=== PATIENT | male | born 1945 | race Two or more races ===

== ENCOUNTER 2021-11-29 08:47 | Emergency (ER) | payer MEDICARE, OTHER ==
[~2021-11-29] VITALS: Ht 170.2 cm; Wt 74.8 kg
[2021-11-29 09:31] VITALS: BP 126/63
[2021-11-29 10:13] LABS: Basophils # (auto) 0 10 ^3/uL (0-0.2); Basophils % (auto) 0.4 % (0.0-2.0); Eosinophils # (auto) 0 10 ^3/uL (0-0.8); Eosinophils % (auto) 0.2 % (0.0-7.0); Hematocrit 30.5 % (41.0-53.0); Hemoglobin 10.8 g/dL (13.5-17.5); Lymphocytes # (auto) 0.5 10 ^3/uL (0.4-5.4); Lymphocytes % (auto) 5.4 % (10.0-50.0); Mean Corpuscular Hemoglobin 35.1 pg (28.0-32.0); Mean Corpuscular Hgb Conc. 35.5 g/dL (32.0-36.0); Mean Corpuscular Volume 98.8 fL (80.0-100.0); Monocytes # (auto) 0.8 10 ^3/uL (0-1.3); Monocytes % (auto) 8.6 % (0.0-12.0); Neutrophils # (auto) 7.8 10 ^3/uL (1.6-8.6); Neutrophils % (auto) 85.4 % (37.0-80.0); Red Blood Cells 3.09 10^6/uL (4.5-5.90); Red Cell Distribution Width 12.8 % (11.8-14.3); White Blood Cell 9.2 10^3/uL (4.4-10.8)
[2021-11-29 10:24] LABS: Urine WBC None Seen /hpf (0 - 3)
[2021-11-29 10:45] LABS: Calcium 8.7 mg/dL (8.5-10.1); Potassium 4.3 mmol/L (3.5-5.1)
[2021-11-29 10:50] LABS: BUN/Creatinine Ratio 44.4; Bilirubin, Total 0.4 mg/dL (0.2-1.0); Total Protein 6.5 g/dL (6.4-8.2)
[2021-11-29 11:25] LABS: Urine Bacteria NONE SEEN /hpf (None Seen); Urine Blood 2+ /uL (Negative); Urine Hyaline Cast FEW /lpf (0 - 2); Urine Specific Gravity 1.023 (1.001-1.035)
== END 2021-11-29 12:41 | disposition home or self-care (01) ==
LOC: ER 08:47
DX: R33.9 Retention of urine, unspecified (principal); F03.90 Unspecified dementia, unspecified severity, without behavioral disturbance, psychotic disturbance, mood disturbance, and anxiety; J45.909 Unspecified asthma, uncomplicated
CPT/HCPCS: 36415; 51702; 80053; 81001; 85025

== ENCOUNTER 2021-12-01 03:50 | Emergency (ER) | payer MEDICARE ==
[~2021-12-01] VITALS: Ht 167.6 cm; Wt 54.4 kg
[2021-12-01 08:05] VITALS: BP 141/70
[2021-12-01 08:27] LABS: Urine Bacteria NONE SEEN /hpf (None Seen); Urine Blood TRACE /uL (Negative); Urine Specific Gravity 1.024 (1.001-1.035); Urine WBC 3 /hpf (0 - 3)
== END 2021-12-01 08:53 | disposition home or self-care (01) ==
LOC: ER 03:50
DX: R33.9 Retention of urine, unspecified (principal); F03.90 Unspecified dementia, unspecified severity, without behavioral disturbance, psychotic disturbance, mood disturbance, and anxiety; J45.909 Unspecified asthma, uncomplicated
CPT/HCPCS: 51702; 81001

== ENCOUNTER 2023-02-22 03:54 | Emergency (ER) | payer MEDICARE ==
[~2023-02-22] VITALS: Ht 175.3 cm; Wt 54.5 kg
[2023-02-22 06:12] LABS: Urine Bacteria FEW /hpf (None Seen); Urine Blood 1+ /uL (Negative); Urine Specific Gravity 1.009 (1.001-1.035); Urine WBC <1 /hpf (0 - 3)
[2023-02-22 07:42] VITALS: BP 138/47
== END 2023-02-22 07:45 | disposition home or self-care (01) ==
LOC: ER 03:54
DX: R33.9 Retention of urine, unspecified (principal)
CPT/HCPCS: 51702; 81001

== ENCOUNTER 2023-03-05 12:34 | Emergency (ER) | payer OTHER ==
[~2023-03-05] VITALS: Ht 175.3 cm; Wt 57.4 kg
[2023-03-05 13:55] VITALS: BP 155/76
[2023-03-05] MEDS ORDERED: CIPR-173 PO (14:09)
== END 2023-03-05 14:30 | disposition home or self-care (01) ==
LOC: ER 12:34
DX: Z46.6 Encounter for fitting and adjustment of urinary device (principal); N39.0 Urinary tract infection, site not specified; J45.909 Unspecified asthma, uncomplicated; F03.90 Unspecified dementia, unspecified severity, without behavioral disturbance, psychotic disturbance, mood disturbance, and anxiety; Z87.440 Personal history of urinary (tract) infections
CPT/HCPCS: 81002

== ENCOUNTER 2024-06-20 17:37 | Emergency (ER) | payer OTHER ==
[~2024-06-20] VITALS: Ht 170.2 cm; Wt 54.0 kg
[~2024-06-20 17:37] MED LIST: CIPR-173 PO
[2024-06-20 18:14] VITALS: BP 171/77; PULSE 94; RESP 18; O2SAT 97
[2024-06-20] MEDS ORDERED: ACET500T58 PO (18:59)
[2024-06-20] MEDS ORDERED: BACDST PO (18:59)
[2024-06-20 19:00] VITALS: TEMP 97.7
[2024-06-20] MEDS: cefTRIAXone SOD 1,000 MG VL IM ONE (19:08)
== END 2024-06-20 19:14 | disposition home or self-care (01) ==
LOC: ER 17:37
DX: N39.0 Urinary tract infection, site not specified (principal); N40.0 Benign prostatic hyperplasia without lower urinary tract symptoms; J45.909 Unspecified asthma, uncomplicated; F03.90 Unspecified dementia, unspecified severity, without behavioral disturbance, psychotic disturbance, mood disturbance, and anxiety; Z46.6 Encounter for fitting and adjustment of urinary device; Z79.899 Other long term (current) drug therapy
CPT/HCPCS: 81002; 96372; 99283; J0696

== ENCOUNTER 2024-06-23 18:14 | Emergency (ER) | payer OTHER ==
[~2024-06-23] VITALS: Ht 172.7 cm; Wt 54.4 kg
[~2024-06-23 18:14] MED LIST changes: +ACET500T58 PO; +BACDST PO
[2024-06-23] MEDS ORDERED: CEPH500C PO (19:08)
[2024-06-23 19:34] VITALS: PULSE 74; RESP 16; O2SAT 98
[2024-06-23 20:00] VITALS: BP 169/72; PULSE 80; RESP 16; TEMP 98.1; O2SAT 97
[2024-06-23] MEDS: cefTRIAXone SOD 1,000 MG VL IM ONE (20:24)
== END 2024-06-23 20:40 | disposition home or self-care (01) ==
LOC: ER 18:14
DX: N39.0 Urinary tract infection, site not specified (principal); T83.098D Other mechanical complication of other urinary catheter, subsequent encounter; J45.909 Unspecified asthma, uncomplicated; F03.90 Unspecified dementia, unspecified severity, without behavioral disturbance, psychotic disturbance, mood disturbance, and anxiety; Z46.6 Encounter for fitting and adjustment of urinary device; Z79.899 Other long term (current) drug therapy; Y92.89 Other specified places as the place of occurrence of the external cause
CPT/HCPCS: 51702; 96372; 99284; J0696